=== PATIENT | male | born 1975 | race Caucasian/White ===

== ENCOUNTER 2017-04-09 18:02 | Inpatient (IN) | payer OTHER ==
[~2017-04-09] VITALS: Ht 167.6 cm; Wt 90.0 kg
[2017-04-09] MEDS ORDERED: SODIUM CHLORIDE 0.9% 1,000ML IVBOLUS ONE ×3 (18:30→22:30)
[2017-04-09] MEDS ORDERED: FAMOTIDINE 20 MG/2 ML IVP ONE (18:30)
[2017-04-09] MEDS ORDERED: PLEASE ENTER HEIGHT AND WEIGHT MC SCH (18:30)
[2017-04-09] MEDS ORDERED: MAALOX/HYOSCYAMINE/LIDOCAINE 45 ML BTL PO ONE (18:30)
[2017-04-09] MEDS ORDERED: SODIUM CHLORIDE FLUSH 10ML SYR IVF ONE (18:30)
[2017-04-09] MEDS ORDERED: FAMOTIDINE 20 MG/2 ML ONE (18:35)
[2017-04-09] MEDS ORDERED: MAALOX/HYOSCYAMINE/LIDOCAINE 45 ML BTL ONE (18:35)
[2017-04-09 18:45] LABS: HEMOGLOBIN 17.8 g/dL (13.7-18.0); WHITE BLOOD COUNT 17.3 x10^3/uL (3.4-10)
[2017-04-09 18:57] LABS: BLOOD UREA NITROGEN 15 mg/dL (7-18)
[2017-04-09 19:03] LABS: ASPARTATE AMINO TRANSFERASE 26 U/L (15-37)
[2017-04-09 19:04] LABS: IS PT STATUS REG ER OR PRE ER? YES
[2017-04-09] MEDS ORDERED: IBUPROFEN 200 MG TABLET PO ONE (19:30)
[2017-04-09] MEDS ORDERED: IBUPROFEN 200 MG TABLET ONE (19:35)
[2017-04-09] MEDS ORDERED: ONDANSETRON 2MG/ML, 2ML ONE (20:28)
[2017-04-09] MEDS ORDERED: ONDANSETRON 2MG/ML, 2ML IVPush ONE (21:00)
[2017-04-09] MEDS ORDERED: CEFTRIAXONE PMX 1GM/50ML 50 ML ONE (21:16)
[2017-04-09] MEDS ORDERED: OMNIPAQUE 350 MG/ML, 100ML BOTTLE ONE (21:21)
[2017-04-09] MEDS ORDERED: CEFTRIAXONE PMX 1GM/50ML 50 ML IV ONE (21:30)
[2017-04-09] MEDS ORDERED: CLOM50TA2 PO (22:21)
[2017-04-09] MEDS ORDERED: ONDANSETRON 2MG/ML, 2ML IVPB PRN (22:30)
[2017-04-09] MEDS ORDERED: PHARMACY MAY ADJ FOR RENAL FX MC PRN (22:30)
[2017-04-09] MEDS: ENOXAPARIN 40 MG/0.4 ML SQ SCH (22:30)
[2017-04-09] MEDS ORDERED: morphine SULFATE 10 MG/ML, 1ML IVPush PRN (22:30)
[2017-04-09] MEDS ORDERED: LORazepam 2 MG/ML, 1ML IVPush PRN (22:30)
[2017-04-09] MEDS ORDERED: ONDANSETRON 2MG/ML, 2ML IVPush PRN (22:30)
[2017-04-09] MEDS ORDERED: hydrALAzine 20 MG/ML, 1ML IVPush PRN (22:30)
[2017-04-09] MEDS: CEFTRIAXONE 2 GM in SODIUM CHLORIDE 0.9% 50 ML IVPB SCH (22:30)
[2017-04-09 23:48] LABS: RAPID INFLUENZA A Negative (Negative); RAPID INFLUENZA B Negative (Negative)
[2017-04-10] MEDS: ACETAMINOPHEN 325 MG TABLET PO PRN ×3 (02:16→18:03)
[2017-04-10] MEDS: AZITHROMYCIN 500 MG in SODIUM CHLORIDE 0.9% 250 ML IV SCH (02:16)
[2017-04-10 02:35] VITALS: BP 128/66
[2017-04-10 05:22] LABS: HEMATOCRIT 42.9 % (39.2-51.8); HEMOGLOBIN 14.6 g/dL (13.7-18.0); WHITE BLOOD COUNT 10.8 x10^3/uL (3.4-10)
[2017-04-10 05:40] LABS: BLOOD UREA NITROGEN 13 mg/dL (7-18)
[2017-04-10 07:59] VITALS: BP 105/65
[2017-04-10 13:54] VITALS: BP 111/70
[2017-04-10 19:05] VITALS: BP 126/72
[2017-04-10] MEDS: ENOXAPARIN 40 MG/0.4 ML SQ SCH (22:30)
[2017-04-10] MEDS: CEFTRIAXONE 2 GM in SODIUM CHLORIDE 0.9% 50 ML IVPB SCH (23:05)
[2017-04-11 02:14] VITALS: BP 149/75
[2017-04-11] MEDS: AZITHROMYCIN 500 MG in SODIUM CHLORIDE 0.9% 250 ML IV SCH (02:19)
[2017-04-11 05:39] LABS: HEMATOCRIT 43.8 % (39.2-51.8); WHITE BLOOD COUNT 8.7 x10^3/uL (3.4-10)
[2017-04-11 06:07] LABS: BLOOD UREA NITROGEN 11 mg/dL (7-18)
[2017-04-11 07:10] VITALS: BP 114/75
[2017-04-11] MEDS ORDERED: CEFD300C37 PO (10:16)
[2017-04-11] MEDS ORDERED: AZIT250T PO (10:16)
[2017-04-11 12:33] VITALS: BP 127/81
[2017-04-11] MEDS ORDERED: ONDA4TAB7 PO (13:11)
== END 2017-04-11 13:00 | disposition home or self-care (01) | DRG 872 ==
LOC: ED 20:54 → EDIP 22:16 → 3NE 23:41 → DCLOUNGE 04-11 12:42
PROVIDERS: ADMIT Internal Medicine; ATTEND Internal Medicine
DX: A41.9 Sepsis, unspecified organism (principal); A08.4 Viral intestinal infection, unspecified; J98.11 Atelectasis; E78.5 Hyperlipidemia, unspecified; I10 Essential (primary) hypertension; J40 Bronchitis, not specified as acute or chronic; M10.9 Gout, unspecified; E86.0 Dehydration; Z87.891 Personal history of nicotine dependence; Z83.3 Family history of diabetes mellitus; Z82.49 Family history of ischemic heart disease and other diseases of the circulatory system
CPT/HCPCS: 36415; 71010; 74177; 80048; 80053; 81003; 83605; 83690; 84145; 84484; 85025; 85610; 87040; 87070; 87205; 87324; 87400; 93005; 96361; 96365; 96375; J0456; J0696; J2405; Q9967; J7030; J7050; S0028